=== PATIENT | female | born 1955 ===

== ENCOUNTER 2022-10-23 05:22 | Day surgery (SDC) | payer OTHER ==
[~2022-10-23 05:22] MED LIST: Dextrose 5%-0.45% NaCl 1,000 ML IV SCH; Sodium Chloride 0.9% 10 ML Syringe FLUSH PRN; Sodium Chloride 0.9% 10 ML Syringe FLUSH SCH
[2022-10-23] MEDS ORDERED: fentaNYL 100 MCG/2 ML SDV ONE (06:09)
[2022-10-23] MEDS ORDERED: Midazolam 1 MG/ML 2 ML SDV ONE (06:09)
[2022-10-23] MEDS ORDERED: fentaNYL 100 MCG/2 ML SDV IV ONE ×3 (06:28→06:44)
[2022-10-23] MEDS ORDERED: Midazolam 1 MG/ML 2 ML SDV IV ONE ×6 (06:29→06:41)
== END 2022-10-23 08:25 | disposition home or self-care (01) ==
LOC: DL.ENDO 05:22
PROVIDERS: ATTEND Internal Medicine Gastroenterology
DX: D12.0 Benign neoplasm of cecum (principal); I10 Essential (primary) hypertension; M81.0 Age-related osteoporosis without current pathological fracture; F17.210 Nicotine dependence, cigarettes, uncomplicated
CPT/HCPCS: 45385; J2250; J3010; J7042